=== PATIENT | male | born 1965 | race Caucasian/White ===

== ENCOUNTER 2018-11-07 04:06 | Emergency (ER) | payer OTHER ==
--- NOTE | 2018-11-07 04:41 | ED ---
URI HPI - General Chief Complaint: Upper Respiratory Infection Stated Complaint: Cough, SOB Time Seen by Provider: 11/07/18 04:29 Source: patient Mode of arrival: ambulatory Limitations: no limitations - History of Present Illness Initial Comments: Mario is a previously healthy 53-year-old male who presents to the emergency department today for reevaluation of a cough. Patient reports that for the past 2 weeks she's been experiencing intermittent coughing. He reports her coughing seems to be worse at night and sometimes after work. Patient reports that he was seen 2 weeks ago and told that his cough is probably due to acid reflux he was prescribed a medication is not certain what it is he's only been taking intermittently. He is advised that he needed any antibiotics. He then followed up at another facility but didn't have chest x-rays done in the skin was told he didn't have pneumonia. Patient reports that tonight he was a sleep when he woke feeling as though his throat was completely tight and he couldn't breathe. He was coughing and having trouble speaking, he contacted his daughter who immediately brought him to the emergency department for evaluation. Upon arrival patient reports he is actually feeling better. Patient has no history of asthma or reactive airway disease as a child. He is not a smoker he is no diagnosis of COPD. He is not wheezing on exam. Patient denies any productive cough any fevers. Patient reports that his breathing is completely fine apart from these episodes. - Related Data Previous Rx's Medication Instructions Recorded Pantoprazole Sodium [Protonix] 20 mg PO DAILY #30 tablet. 11/07/18 predniSONE 40 mg PO DAILY 5 Days #10 tab 11/07/18 Allergies Allergy/AdvReac Type Severity Reaction Status Date / Time No Known Allergies Allergy Verified 11/07/18 04:14 Review of Systems ROS Statement: Those systems with pertinent positive or pertinent negative responses have been documented in the HPI. ROS Other: All systems not noted in ROS Statement are negative. Past Medical History Past Medical History: No Reported History History of Any Multi-Drug Resistant Organisms: None Reported Past Surgical History: No Surgical Hx Reported Smoking Status: Never smoker Past Alcohol Use History: Occasional Past Drug Use History: None Reported General Exam - General Exam Comments Initial Comments: Physical Exam GENERAL: Patient is well-developed and well-nourished. Patient is nontoxic and well- hydrated and is in no distress. HENT: Normocephalic, Atraumatic. EYES: PERRL, EOMI PULMONARY: Unlabored respirations. No audible rales rhonchi or wheezing was noted. CARDIOVASCULAR: There is a regular rate and rhythm without any murmurs gallops or rubs. ABDOMEN: Soft and nontender with normal bowel sounds. SKIN: Skin is clear with no lesions or rashes and otherwise unremarkable. : Deferred NEUROLOGIC: Patient is alert and oriented x3. Moving all extremities spontaneously MUSCULOSKELETAL: Normal extremities with adequate strength and full range of motion. No lower extremity swelling or edema. No calf tenderness. PSYCHIATRIC: Normal psychiatric evaluation. Limitations: no limitations Course Vital Signs 11/07/18 11/07/18 04:09 04:17 Temperature 98.0 F Pulse Rate 71 Respiratory 20 12 Rate Blood Pressure 163/93 O2 Sat by Pulse 98 Oximetry Medical Decision Making - Medical Decision Making The patient was seen and evaluated, history is obtained from the patient is an history and physical exam are concerning for likely vocal cord spasm as patient seems to have coughing fits when laying flat but no signs of heart failure It sounds as though the patient may of had a vocal cord spasm in his sleep tonight resulting in him having a sensation that his throat was closing a coming to the left air, this is improved significantly upon arrival the emergency department. Patient is hemodynamically stable physical exam is unremarkable. Chest x-ray with no signs of pneumonia. I discussed with the patient that he needs treatment for GERD and a follow-up with ear nose and throat doctor for evaluation of his vocal cords. All questions pertaining care were answered return parameters were discussed patient will be discharged home in stable condition. Disposition Clinical Impression: Spasm of vocal cords Disposition: HOME SELF-CARE Condition: Stable Prescriptions: predniSONE 40 mg PO DAILY 5 Days #10 tab Pantoprazole Sodium [Protonix] 20 mg PO DAILY #30 tablet. Is patient prescribed a controlled substance at d/c from ED?: No Referrals: Zeb Castillo MD [Primary Care Provider] - 1-2 days Eduardo Will MD [STAFF PHYSICIAN] - 1-2 days
--- NOTE | 2018-11-07 05:05 | XR ---
EXAM: XR Chest, 2 Views CLINICAL HISTORY: ITS.REASON XR Reason: cough TECHNIQUE: Frontal and lateral views of the chest. COMPARISON: No relevant prior studies available. FINDINGS: No cardiomegaly. No consolidation or other acute cardiopulmonary findings. Old granulomatous disease. IMPRESSION: No acute cardiopulmonary findings.
[2018-11-07 05:22] VITALS: RESP 18
[2018-11-07 05:31] VITALS: BP 142/90; PULSE 72; TEMP 98
== END 2018-11-07 05:27 | disposition home or self-care (01) ==
LOC: EC 04:06
DX: J38.5 Laryngeal spasm (principal); K21.9 Gastro-esophageal reflux disease without esophagitis
CPT/HCPCS: 71046; 99283